=== PATIENT | female | born 1945 | race African-American/Black ===

== ENCOUNTER 2022-08-10 09:19 | Inpatient (IN) | payer MEDICARE, OTHER ==
[~2022-08-10] VITALS: Ht 162.6 cm; Wt 109.2 kg
[2022-08-10] MEDS ORDERED: PROCHLORPERAZINE EDISYLATE 5 MG/ML 2ML VIAL IM ONE (10:00)
[2022-08-10] MEDS ORDERED: diphenhdrAMINE HCL 50 MG/1 ML VL IV ONE (10:15)
[2022-08-10 10:30] LABS: Basophils # (auto) 0.1 10 ^3/uL (0-0.2); Eosinophils # (auto) 0.2 10 ^3/uL (0-0.8); Eosinophils % (auto) 4.3 % (0.0-7.0); Hematocrit 43.8 % (36.0-46.0); Hemoglobin 14.5 g/dL (12.2-16.2); Lymphocytes # (auto) 1.8 10 ^3/uL (0.4-5.4); Lymphocytes % (auto) 33.9 % (10.0-50.0); Mean Corpuscular Hemoglobin 28.6 pg (28.0-32.0); Mean Corpuscular Hgb Conc. 33.1 g/dL (32.0-36.0); Mean Corpuscular Volume 86.5 fL (80.0-100.0); Monocytes # (auto) 0.4 10 ^3/uL (0-1.3); Monocytes % (auto) 8.4 % (0.0-12.0); Neutrophils # (auto) 2.7 10 ^3/uL (1.6-8.6); Neutrophils % (auto) 52.4 % (37.0-80.0); Nucleated Red Blood Cells % 0.1 %; Red Blood Cells 5.07 10^6/uL (4.0-5.20); Red Cell Distribution Width 15.1 % (11.8-14.3); White Blood Cell 5.2 10^3/uL (4.4-10.8)
[2022-08-10 10:44] LABS: Albumin 3.6 g/dL (3.4-5.0); Calcium 8.7 mg/dL (8.5-10.1); Potassium 3.8 mmol/L (3.5-5.1)
[2022-08-10 10:47] LABS: BUN/Creatinine Ratio 16.9 (10.0-20.0); Bilirubin, Total 0.4 mg/dL (0.2-1.0)
[2022-08-10] MEDS ORDERED: SODIUM CHLORIDE 0.9% 1,000 ML IV ONE (11:45)
[2022-08-10 12:24] LABS: INR 0.96 (0.9-1.15); Partial Thromboplastin Time 27.9 sec (24.6-33.4)
[2022-08-10 13:11] LABS: Urine Bacteria NONE SEEN /hpf (None Seen); Urine Blood Negative /uL (Negative); Urine Mucus FEW (None Seen); Urine Specific Gravity 1.019 (1.001-1.035); Urine WBC 4 /hpf (0 - 5)
[2022-08-10] MEDS ORDERED: MECLIZINE HCL 25 MG TAB PO PRN (13:45)
[2022-08-10] MEDS ORDERED: hydrALAZINE HCL 20 MG/ML VL IV PRN (14:15)
[2022-08-10 14:40] LABS: Alcohol, Urine < 3.0 mg/dL (0-10); Amphetamine Screen, Urine NEGATIVE (NEGATIVE); Barbiturate Scree,Urine NEGATIVE (NEGATIVE); Benzodiazephine Screen, Urine NEGATIVE (NEGATIVE); Cannabinoid Screen, Urine NEGATIVE (NEGATIVE); Cocaine Screen, Urine NEGATIVE (NEGATIVE); Opiate Scree,Urine NEGATIVE (NEGATIVE); Phencyclidine Screen, Urine NEGATIVE (NEGATIVE)
[2022-08-10 14:45] LABS: Phosphorus 2.4 mg/dL (2.5-4.90)
[2022-08-10 14:55] LABS: INR 0.97 (0.9-1.15)
[2022-08-10] MEDS: ENOXAPARIN SOD 40 MG/0.4 ML SYRINGE SC SCH (15:25)
[2022-08-10] MEDS ORDERED: IOHEXOL 350 MG/ML 100ML IJ ONE (17:39)
[2022-08-10 22:00] VITALS: BP 141/61
[2022-08-10] MEDS ORDERED: ATORVASTATIN 20 MG TAB PO SCH (22:00)
[2022-08-11 05:00] VITALS: BP 127/62
[2022-08-11 08:00] VITALS: BP 126/68
[2022-08-11 08:06] LABS: RPR Non Reactive (Non Reactive)
[2022-08-11] MEDS: ENOXAPARIN SOD 40 MG/0.4 ML SYRINGE SC SCH (09:02)
[2022-08-11] MEDS: ASPirin 81 mg TAB PO SCH (09:02)
[2022-08-11 12:00] VITALS: BP 125/74
[2022-08-11] MEDS ORDERED: LORazepam 2MG/ML-1ML VIAL IV ONE (13:30)
[2022-08-11 16:05] VITALS: BP 119/46
[2022-08-11 22:00] VITALS: BP 111/51
[2022-08-11] MEDS ORDERED: ATORVASTATIN 20 MG TAB PO SCH (22:00)
[2022-08-12] MEDS ORDERED: ATOR10TA52 PO (04:50)
[2022-08-12] MEDS ORDERED: LISI2.5T47 PO (04:52)
[2022-08-12 05:00] VITALS: BP 94/75
[2022-08-12] MEDS ORDERED: HYDROcodone-ACET 5/325MG TAB PO PRN (05:00)
[2022-08-12] MEDS ORDERED: ACETAMINOPHEN 325 MG TAB PO PRN (05:00)
[2022-08-12] MEDS ORDERED: ONDANSETRON HCL 4 MG/2 ML VIAL IV PRN (05:00)
[2022-08-12 09:00] VITALS: BP 124/58
[2022-08-12] MEDS: ENOXAPARIN SOD 40 MG/0.4 ML SYRINGE SC SCH (10:03)
[2022-08-12] MEDS: ASPirin 81 mg TAB PO SCH (10:03)
[2022-08-12] MEDS ORDERED: MECL1TAB32 PO (10:06)
[2022-08-12] MEDS ORDERED: AMOX875T4 PO (10:12)
[2022-08-12] MEDS ORDERED: AMOXICILLIN/CLAVUL 875 MG TAB PO SCH (10:15)
[2022-08-12 11:30] LABS: Basophils # (auto) 0.1 10 ^3/uL (0-0.2); Basophils % (auto) 0.9 % (0.0-2.0); Eosinophils # (auto) 0.3 10 ^3/uL (0-0.8); Eosinophils % (auto) 4.7 % (0.0-7.0); Hematocrit 42.2 % (36.0-46.0); Hemoglobin 13.9 g/dL (12.2-16.2); Mean Corpuscular Hemoglobin 28.4 pg (28.0-32.0); Mean Corpuscular Hgb Conc. 32.9 g/dL (32.0-36.0); Mean Corpuscular Volume 86.3 fL (80.0-100.0); Monocytes # (auto) 0.5 10 ^3/uL (0-1.3); Neutrophils % (auto) 51.4 % (37.0-80.0); Nucleated Red Blood Cells % 0.1 %; Red Blood Cells 4.88 10^6/uL (4.0-5.20); Red Cell Distribution Width 14.6 % (11.8-14.3); White Blood Cell 5.9 10^3/uL (4.4-10.8)
[2022-08-12 11:57] LABS: Calcium 8.7 mg/dL (8.5-10.1); Potassium 3.9 mmol/L (3.5-5.1)
[2022-08-12 11:59] LABS: BUN/Creatinine Ratio 14.8 (10.0-20.0)
[2022-08-12 13:00] VITALS: BP 146/50
[2022-08-12 13:05] VITALS: BP 124/58
== END 2022-08-12 16:20 | disposition home health service (06) | DRG 149 ==
LOC: EDBD 09:19 → ER 09:19 → TELE 13:51 → TELE-WESTW 17:32
PROVIDERS: ADMIT Nurse Practitioner Family; ATTEND Internal Medicine
DX: R42 Dizziness and giddiness (principal); Z68.41 Body mass index [BMI] 40.0-44.9, adult; I10 Essential (primary) hypertension; E66.01 Morbid (severe) obesity due to excess calories; Z88.2 Allergy status to sulfonamides; Z86.73 Personal history of transient ischemic attack (TIA), and cerebral infarction without residual deficits
CPT/HCPCS: 36415; 70450; 70496; 70551; 80048; 80053; 80061; 80307; 81001; 83690; 84100; 84443; 84484; 85025; 85610; 85652; 85730; 86592; 86850; 86900; 86901; 87040; 93005; 93306; 93886; 96361; 96372; 96374; 97110; 97116; 97163; 97530; G0378

== ENCOUNTER 2023-11-14 08:43 | Emergency (ER) | payer OTHER ==
[~2023-11-14] VITALS: Ht 162.6 cm; Wt 102.0 kg
[~2023-11-14 08:43] MED LIST: AMOX875T4 PO; ATOR10TA52 PO; LISI2.5T47 PO; MECL-90 PO
[2023-11-14] MEDS: KETOROLAC TROMETH 60MG/2ML VIAL IM ONE (09:56)
[2023-11-14 10:19] VITALS: BP 137/87; PULSE 79; RESP 18; O2SAT 96
[2023-11-14] MEDS ORDERED: PRED20TA2 PO (10:30)
[2023-11-14] MEDS ORDERED: IBUP-1456 PO (10:30)
== END 2023-11-14 10:40 | disposition home or self-care (01) ==
LOC: ER 08:43 → EDSEX 08:43 → ER 10:37
DX: M51.16 Intervertebral disc disorders with radiculopathy, lumbar region (principal); Z88.2 Allergy status to sulfonamides
CPT/HCPCS: 72100; 96372; 99283; J1885